=== PATIENT | male | born 1935 | race Caucasian/White ===

== ENCOUNTER 2020-05-24 09:17 | Day surgery (SDC) | payer MEDICARE, OTHER ==
[~2020-05-24] VITALS: Ht 175.3 cm; Wt 85.9 kg
--- NOTE | ~2020-05-24 | HEMODYNAMI ---
PATIENT:LZI MARTINEZ MEDICAL RECORD: [id number] : 31 LOCATION:[facility] ADMISSION DATE: 05/24/20 Generatedon:05/24/202013:13 Patient name: LIZ MARTINEZ Patient #: [id number] SSN: DO B: 1935 Date of study: 05/24/2020 Page: Of Hemodynamic Procedure Report Patient Data Patient Demographics Procedure consent was obtained First Name: LIZ Gender: Male Last Name: MICHELLE : 1935 Middle Initial: T Age: 85 year(s) Patient #: [id number] Race: Unknown Additional ID: [id number] Contact details Address: [address] State: [place] City: [facility] Zip code: [address] Past Medical History Allergies Allergen Reaction Date Comments Reported Erythromycin 05/24/2020 Admission Admission Data Admission Date: 05/24/2020 Admission Time: 9:17 Procedure Procedure Types Cath Procedure Peripheral Cath Diagnostic Procedure Abd/Extremity Extremities Right Lower Ext Arterio Procedure Description Procedure Date Procedure Date: 05/24/2020 Procedure Start Time: 11:23 Procedure End Time: 13:12 Procedure Staff Name Function Grupo Maher MD Performing Physician BETY WEST RT Monitor Garland Villasenor RT Scrub Nara Sandoval RN Nurse Luzmaria DUGAN RN Nurse Procedure Data Cath Procedure Fluoroscopy Diagnostic fluoroscopy Total fluoroscopy dose: 426 dose: 426 mGy mGy Contrast Material Contrast Material Type Amount (ml) Isovue 300 55 Entry Location Entry Primary Successful Side Size Upsize Upsize Entry Closure Succes sful Closure Location (Fr) 1 (Fr) 2 (Fr) Remarks Device Remarks Femoral Left 5 Fr 6 Fr 6 Fr Mynx artery Long Short Payroll Manager 6Fr/7Fr Procedure Medications Medication Administration Route Dosage Heparin Flush Bag added to field 3 bags (1000units/500ml NS) Lidocaine 1% added to field 20 Benadryl I.V. 50 mg Versed I.V. 1 mg Fentanyl I.V. 50 mcg Heparin Bolus I.V. 5000 units Hydralizine 10 mg Hydralizine I.V. 10 mg Hydralizine I.V. 10 mg Heparin Bolus I.V. 2500 units Fentanyl I.V. 50 mcg Versed I.V. 0.5 mg Hydralizine I.V. 10 mg Versed I.V. 0.5 mg Hemodynamics Rest Heart Rate: 56 (bpm) Snapshots Pre Cath Intra NCS Post Cath Vital Signs Time Heart Resp SPO2 etCO2 NIBP (mmHg) Rhythm Pain Sedation Rate (ipm) (%) (mmHg) Status Level (bpm) 10:58:54 0 222/98(176) NSR 0 (11) 10(A) , No pain 11:03:27 57 26 97 28.6 219/104(183) NSR 0 (11) 10(A) , No pain 11:12:01 56 28 100 28.6 212/97(181) NSR 0 (11) 10(A) , No pain 11:16:37 57 22 100 33.9 216/97(181) NSR 0 (11) 10(A) , No pain 11:21:16 60 17 99 0 219/100(185) NSR 0 (11) 10(A) , No pain 11:25:50 59 11 95 0 207/93(179) NSR 0 (11) 10(A) , No pain 11:30:27 58 13 96 0 197/91(169) NSR 0 (11) 10(A) , No pain 11:34:59 58 19 99 29.4 200/92(162) NSR 0 (11) 8(A) , No pain 11:39:33 63 17 20.3 190/92(164) NSR 0 (11) 8(A) , No pain 11:44:04 58 17 28.6 190/88(153) NSR 0 (11) 8(A) , No pain 11:48:36 58 19 100 11.3 169/81(151) NSR 0 (11) 8(A) , No pain 11:53:01 57 19 3 182/85(165) NSR 0 (11) 8(A) , No pain 11:57:29 57 19 100 21.8 199/85(151) NSR 0 (11) 8(A) , No pain 12:02:01 57 22 4.5 193/92(171) NSR 0 (11) 8(A) , No pain 12:06:32 58 20 11.3 206/92(154) NSR 0 (11) 8(A) , No pain 12:11:08 58 21 10.5 201/85(154) NSR 0 (11) 8(A) , No pain 12:15:39 61 25 100 9.8 171/82(146) NSR 0 (11) 8(A) , No pain 12:20:05 63 19 9.8 180/83(136) NSR 0 (11) 10(A) , No pain 12:24:33 67 23 93 30.1 179/85(128) NSR 0 (11) 10(A) , No pain 12:29:00 129 17 12.8 176/83(131) NSR 0 (11) 10(A) , No pain 12:33:24 68 23 99 13.5 175/89(142) NSR 0 (11) 10(A) , No pain 12:37:48 69 22 99 16.5 178/87(121) NSR 0 (11) 10(A) , No pain 12:42:10 71 27 100 24.8 180/95(110) NSR 0 (11) 10(A) , No pain 12:46:36 72 24 100 10.5 179/91(144) NSR 0 (11) 10(A) , No pain 12:51:35 72 26 100 11.3 Measuring NSR 0 (11) 10(A) , No pain 12:52:10 73 24 100 24.1 189/107(150) NSR 0 (11) 10(A) , No pain 12:56:38 73 26 99 12 186/102(134) NSR 0 (11) 10(A) , No pain 13:01:05 76 28 98 27.9 200/109(159) NSR 0 (11) 10(A) , No pain 13:05:37 72 27 100 24.1 209/106(165) NSR 0 (11) 10(A) , No pain 13:09:59 67 19 7.5 184/93(162) NSR 0 (11) 10(A) , No pain 13:12:37 65 23 100 21.8 172/82(150) NSR 0 (11) 10(A) , No pain Medications Time Medication Route Dose Verified Delivered Reason Notes Effe ctiveness by by 11:06:21 Heparin Flush added 3 Grupo Lombardo used for Bag to bags Nika Maher procedure (1000units/500ml field MD BARON NS) 11:06:33 Lidocaine 1% added 20ml Grupo Lombardo for local to vial Nika Maher anesthetic field MD BARON 11:19:32 Benadryl I.V. 50 mg Grupo Bains Per Nika Sandoval RN physician 11:19:43 Versed I.V. 1 mg Grupo Bains for Nika Sandoval RN sedation 11:19:54 Fentanyl I.V. 50 Grupo Bains for mcg Nika Sandoval RN sedation 11:26:44 Heparin Bolus I.V. 5000 Grupo Bains Per units Nika Sandoval RN physician 11:33:35 Hydralizine 10 mg Grupo Sandoval RN, MD 11:40:02 Hydralizine I.V. 10 mg Grupo Sandoval RN, MD 12:07:35 Hydralizine I.V. 10 mg Grupo Sandoval RN, MD 12:12:45 Heparin Bolus I.V. 2500 Grupo Dutta Per units Nika walker MD RN 12:15:54 Fentanyl I.V. 50 Grupo Hensonody for mcg Nika Sandoval RN sedation 12:46:17 Versed I.V. 0.5 Grupo Woodr for mg Nika DUGAN sedation RN 12:56:25 Versed I.V. 0.5 Grupo Minner for mg Nika DUGAN sedation RN 13:08:08 Hydralizine I.V. 10 mg Grupo DUGAN MD bonding machine setter Log Time Note 10:53:23 Garland Villasenor RT (R) (CV) sent for patient. Start room use. 10:53:34 Patient received from Outpatients to IR Alert and oriented. Tansferred to table in Supine position. 10:53:36 Signed procedure consent form obtained from patient. 10:53:37 Warm blankets applied, and sajan hugger turned on for patient comfort. 10:53:39 Correct patient and procedure confirmed by team. 10:53:41 ECG and BP/O2 sat monitors applied to patient. 10:53:43 - 10:53:49 H&P Date Dictated: 05/24/2020 H&P Addendum completed by physician on day of procedure. (MUST COMPLETE FOR ALL OUTPATIENTS). 10:53:50 Pre-procedure instructions explained to patient. 10:53:51 Pre-op teaching completed and patient verbalized understanding. 10:53:52 Patient NPO since Midnight. 10:53:59 Patient allergic to Erythromycin 10:54:01 Is the patient allergic to Iodine/contrast media? No. 10:54:02 Is patient on blood thinner?Yes. Plavix and Aspirin x2 days ago 10:54:24 Patient diabetic? Yes. 10:54:26 If diabetic: On Metformin? Yes 10:54:30 If on Metformin: Last Dose? 05/22/2020 10:54:32 - 10:54:33 ----Pre-sedation anethsthesia assessment.---- 10:54:36 Previous problem with sedation/anesthesia? No ? 10:54:38 Snore? Yes 10:54:40 Sleep apnea? Yes 10:54:41 Deviated septum? No 10:54:43 Opens mouth fully? Yes 10:54:44 Sticks out tongue? Yes 10:54:47 Airway obstruction? No ? 10:54:50 Dentures? No ? 10:54:51 - 10:55:00 Use device set IR Diagnostic 10:55:02 Bag Decanter (2002S) opened to sterile field. 10:55:02 Sterile Angiographic Pack opened to sterile field. 10:55:03 Tegaderm 4 x 4 (1626W) opened to sterile field. 10:55:38 MICROPUNCTURE 4FR Cook (O99374) opened to sterile field. 10:55:38 BENTSON 145cm wire (N67487) opened to sterile field. 10:55:38 GUDINO 260 wire (K74901) opened to sterile field. 10:55:39 ROADRUNNER .035 260 glide wire (O49168) opened to sterile field. 10:55:39 SHEATH 5FR Madison (ZGW109) opened to sterile field. 11:06:21 Heparin Flush Bag (1000units/500ml NS) 3 bags added to field was administered by Grupo Maher MD; used for procedure; Verbal order read back and verified. 11:06:33 Lidocaine 1% 20ml vial added to field was administered by Grupo jacob MD; for local anesthetic; Verbal order read back and verified. 11:10:05 - 11:10:07 Pre procedure: right dorsailis pedis pulse Doppler 11:10:10 Pre procedure: left dorsailis pedis pulse Doppler 11:10:12 Pre procedure: right posterior tibial pulse Doppler 11:10:15 Pre procedure: left posterior tibial pulse Doppler 11:10:25 IV patent on arrival in left forearm with 0.9% NaCl at O. 11:10:30 Left groin area was prepped with chlora-prep and draped in sterile fashion 11:10:31 Alarms reviewed by Sukumar Jamison 11:10:31 Sharps counted by scrub and verified by RLin 11:10:32 - 11:10:36 Vital chart was started 11:10:37 Baseline sample Acquired. 11:10:38 Full Disclosure recording started 11:10:40 - 11:17:07 Physician arrived 11:17:07 --------ALL STOP TIME OUT------ 11:17:08 Final Timeout: patient, procedure, and site verified with staff and physician. All members of the team are in agreement. 11:17:09 Left groin site verified by team. 11:17:13 Fire Safety Assessment: A--An alcohol-based skin anteseptic being used preoperatively., C--Open oxygen or nitrous oxide is being used. 11:17:26 1) 90+ Normal kidney functon but urine findings or structural abnormalities or genetic trait point to kidney disease. 11:19:32 Benadryl 50 mg I.V. was administered by Nara Sandoval RN; Per physician ; Verbal order read back and verified. 11:19:43 Versed 1 mg I.V. was administered by Nara Sandoval RN; for sedation; Verbal order read back and verified. 11:19:54 Fentanyl 50 mcg I.V. was administered by Nara Sandoval RN; for sedation ; Verbal order read back and verified. 11:20:58 Procedure started. 11:23:49 Local anesthetic to left femerol artery with Lidocaine 1% by Grupo Maher MD.INITIAL ACCESS ONLY 11:24:48 Access obtained with 4Fr micropunture. 11:25:40 Maximum allowable contrast dose (3.7 X eGFR X 0.75)250 ml. 11:26:25 A 5 Fr sheath was inserted into the Left Femoral artery 11::44 Heparin Bolus 5000 units I.V. was administered by Nara Sandoval RN; Per physician; Verbal order read back and verified. 11:30:30 SHEATH 6FR Destination (RSR01) opened to sterile field. 11:30:31 CXI SUPPORT .035 135 CM STR catheter ([id number]) opened to sterile field. 11:33:35 Hydralizine 10 mg was administered by Nara Sandoval RN; ; Verbal order read back and verified. 11:33:45 CXI Catheter 90cm (M73998) opened to sterile field. 11:39:01 Sheath upsized to a 6 Fr Long. 11:40:02 Hydralizine 10 mg I.V. was administered by Nara Sandoval RN; ; Verbal order read back and verified. 11:46:09 Viance Crossing Catheter Standard (VZMLL666) opened to sterile field. 11:46:10 CHOICE PT Extra Support J 300cm guide wire ([id number]) opened to steril e field. 11:57:44 CHOICE PT Extra Support J 300cm guide wire ([id number]) opened to steril e field. 11:59:00 TORQUE DEVICE PLASTIC .038 ( TD01) opened to sterile field. 12:01:40 COPILOT Valve Control (3183890) opened to sterile field. 12:07:35 Hydralizine 10 mg I.V. was administered by Nara Sandoval RN; ; Verbal order read back and verified. 12:12:45 Heparin Bolus 2500 units I.V. was administered by Luzmaria DUGAN RN; Pe r physician; Verbal order read back and verified. 12:15:54 Fentanyl 50 mcg I.V. was administered by Nara Sandoval RN; for sedation ; Verbal order read back and verified. 12:15:54 Inflate balloon Inflation number: 1 A NANOCROSS ELITE 3 X 100 ([id number]) was prepped and advanced across the Undefined1 , then inflated. 12:21:06 Inflate balloon Inflation number: 2 A NANOCROSS ELITE 4MM X 120 X 150 ([id number]) was prepped and advanced across the Undefined1 , then inflated. 12:26:41 Inflate balloon Inflation number: 3 A SHOCKWAVE BALLOON 7 X 60 ([id number]) was prepped and advanced across the Undefined1 , then inflated. 12:37:35 CHOICE PT Extra Support J 300cm guide wire ([id number]) opened to steril e field. 12:46:17 Versed 0.5 mg I.V. was administered by Luzmaria DUGAN RN; for sedation; Verbal order read back and verified. 12:56:25 Versed 0.5 mg I.V. was administered by Luzmaria DUGAN RN; for sedation; Verbal order read back and verified. 12:58:31 SHEATH 6FR Madison (TZD678) opened to sterile field. 12:59:07 Sheath upsized to a 6 Fr Short. 12:59:07 Sheath removed intact; hemostasis achieved with Mynx Payroll Manager 6Fr/7Fr to th e Left Femoral artery. 12:59:10 MYNX COFFEE URN ATTENDANT 6FR/7FR (TE1632) opened to sterile field. 13:00:09 Procedure ended.(Physican Out) 13:02:32 Fluoroscopy dose: 426 mGy 13:02:32 Flurop Dose total: 426 13:02:35 Contrast amount:Isovue 300 55ml. 13:02:37 Maximum allowable dose exceeded? No. 13:02:38 Sharps counted by scrub and verified by R.N. 13:02:47 Post left femerol artery:stable, hematoma, soft, clean and dry 13:02:49 Post Procedure Pulses reassessed and unchanged 13:02:51 Post procedure instruction explained to patient.Patient verbalizes understanding. 13:02:53 Procedure and supply charges have been captured, reviewed, submitted an d are correct. 13:08:08 Hydralizine 10 mg I.V. was administered by Luzmaria DUGAN RN; ; Verbal order read back and verified. 13:12:57 Vital chart was stopped 13:12:59 Procedure ended. 13:12:59 Full Disclosure recording stopped Intervention Summary Intervention Notes Time ActionType Lesion and Equipment Used Action# Pressure Duration Attributes 12:15:54 Inflate Undefined1 NANOCROSS ELITE 3 1 0 00:00 balloon X 120 ([id number]) 12:21:06 Inflate Undefined1 NANOCROSS ELITE 2 0 00:00 balloon 4MM X 120 X 150 ([id number]) 12:26:41 Inflate Undefined1 SHOCKWAVE BALLOON 3 0 00:00 balloon 6 X 60 ([id number]) Device Usage Item Name Manufacture Quantity Catalog Number Hospital Part Curr ent Minimal Lot# / Charge Number Stock Stock Serial# Code Bag Decanter Microtek 1 [id number] 82034 9836 85 5 () Medical Inc. Sterile Cardinal 1 [id number] 325973 1892 13 5 Angiographic Pack Health Tegaderm 4 x 4 3M 1 1626W 677874 636868 1074 79 5 (1626W) MICROPUNCTURE 4FR Glomera 1 K50747 913652 953197 9453 41 5 Cook (I21708) BENTSON 145cm Glomera 1 O04744 520094 1446 33 5 wire (H52959) GUDINO 260 wire [facility] 1 V82695 223681 43049 9993 79 5 (Z23162) ROADRUNNER .035 Glomera 1 D04559 797836 514383 8850 16 5 260 glide wire (K23328) SHEATH 5FR Terumo 1 RVU436 918450 485289 4981 31 5 Madison (LMM524) ACIST Syringe Acist 1 92642 390237 975914 1535 02 20 (42387) Medical Systems Inc ACIST Hand Acist 1 32301 626960 801887 4486 33 5 Control (08245) Medical Systems Inc ACIST Manifold Acist 1 77994 596811 382504 3233 49 5 (67085) Medical Systems Inc SHEATH 6FR Terumo 1 RSR01 185135 22892 9994 64 5 Destination (RSR01) CXI SUPPORT .035 Glomera 1 E17147 335234 828705 8576 42 5 135 CM STR catheter (T53595) CXI Catheter 90cm Glomera 1 O19428 470106 075863 4626 63 5 (F22214) Viance Crossing Medtronic 1 VNC-SD-150 400393 522491 7793 93 5 Catheter Standard (VLNVY914) CHOICE PT Extra Jackson 3 [id number] 684164 9678 52 5 Support J 300cm Scientific guide wire (0181383T6) TORQUE DEVICE Jackson 1 TD01 985279 841744 3417 52 5 PLASTIC .038 ( Scientific TD01) COPILOT Valve Aldridge 1 6611755 380059 524025 8874 17 5 Control (0462493) Vascular NANOCROSS ELITE 3 Medtronic 1 [id number] 743540 856073 2325 94 1 X 120 ([id number]) NANOCROSS ELITE Medtronic 1 [id number] 767904 3873 88 1 4MM X 120 X 150 ([id number]) SHOCKWAVE BALLOON SHOCKWAVE 1 [id number] 888992 8658862 9999 97 1 6 X 60 MEDICAL ([id number]) CHOICE PT Floppy Jackson 1 [id number] 966353 658396 6314 95 5 J 300cm guide Scientific wire (5762537S7) SHEATH 6FR Terumo 1 RVK094 592228 927715 4721 72 40 Madison (GFL329) MYNX COFFEE URN ATTENDANT 6FR/7FR Access 1 GX8509 665065 1610 78 5 (CX2971) Closure Signature Audit [place] Stage Time Signature Unsigned Intra-Procedure 05/24/2020 BETY WEST RT 1:13:21 PM (R) [facility] [address] [place] [address]
[~2020-05-24 09:17] MED LIST: BAYER CHEWABLE81 MG PO; CO Q-1030 MG; DAILY MULTIVITA1 TA1 PO; GLUCOPHAGE500 MG PO; LIPITOR40 MG PO; OMEGA-3100 MG PO; PEPCID20 MG PO; PLAVIX75 MG PO; PRILOSEC20 MG PO; PRINZIDE 20/12.1 TAB PO
[2020-05-24 09:36] LABS: BASOPHILS 0.2 % (0-2); EOSINOPHILS 1.9 % (0-7); HEMATOCRIT 41.4 % (42.0-54.0); HEMOGLOBIN 14.4 g/dL (13.5-17.5); IMMATURE GRANULOCYTES 0.2 % (0-5); LYMPHOCYTES 40.7 % (15-50); MCH 34.3 pg (26.0-34.0); MCHC 34.8 g/dL (31.0-37.0); MCV 98.6 fL (80.0-100.0); MEAN PLATELET VOLUME 9.9 fL (7.4-10.4); MONOCYTES 8.8 % (2-11); NEUTROPHILS 48.2 % (40-80); PLATELET COUNT 131 10x3/uL (130-400); RDW 13.2 % (11.5-14.5); WBC 5.7 10x3/uL (4.8-10.8)
[2020-05-24 09:43] LABS: CALC OSMOLALITY 274 mosm/kg (275-300); CALCIUM 10.2 mg/dL (8.5-10.1); CARBON DIOXIDE 35.9 mmol/L (21.0-32.0); CHLORIDE - SERUM 100 mmol/L (98-107); CREATININE - SERUM 0.8 mg/dL (0.6-1.3); GLUCOSE 148 mg/dL (74-106); POTASSIUM - SERUM 4.1 mmol/L (3.5-5.1); SODIUM 136 mmol/L (136-145); UREA NITROGEN 12 mg/dL (7-18); eGFR NON AFRICAN AMERICAN > 90 mL/min (90-120)
[2020-05-24 09:48] LABS: PROTIME 13.1 SECONDS (11.6-15.0)
[2020-05-24 10:40] VITALS: BMI 27.9
[2020-05-24 15:00] VITALS: BP 146/67
--- NOTE | 2020-05-24 15:56 | NUR ---
REPORT CALLED TO INES CASANOVA RN AND PATIENT TRANSFERRED TO ROOM 2113 BY STRETCHER IN STABLE CONDITION
--- NOTE | 2020-05-24 16:23 | NUR ---
RECEIVED PT FROM IR. PT IS AAO AND BEDFAST. PT IS SEMI FOWLERS AT 30 DEGREES AND WILL BE UNTIL 1750. RR EVEN AND UNLABORED ON RA. VSS AND WNL. NO S/S OF DISTRESS NOTED. 1/2NS INFUSING @100ML/HR VIA L.FOR PIV. PT DENIES ANY NEEDS AT THIS TIME. WILL CTM. L.GRONG IS C/D/I WITH NO S/S OF HEMATOMA PRESENT.
[2020-05-24 16:31] VITALS: BP 146/67; Ht 175.3 cm; Wt 85.9 kg
--- NOTE | 2020-05-24 19:27 | NUR ---
RECIEVED UP IN BED WITH EYES CLOSED . EASILY AROUSES WITH VERBAL STIMULI. DENIES ANY NEEDS AT THIS TIME.
[2020-05-24 20:00] VITALS: BP 174/72
[2020-05-25] VITALS: BP 173/82
[2020-05-25 04:00] VITALS: BP 195/86
[2020-05-25 07:42] VITALS: BP 180/79
--- NOTE | 2020-05-25 11:05 | NUR ---
SALINE LOCK REMOVED, DISCHARGE INSTRUCTIONS DISCUSSED WITH PATIENT AND TO CAR VIA WHEELCHAIR.
== END 2020-05-25 11:31 | disposition home or self-care (01) ==
LOC: D.SP 09:17 → D.RAD 11:00 → EDSTATUS 11:00 → D.SP 11:00 → D.M2 15:57 → D.SP 05-25 11:31
PROVIDERS: ATTEND Radiology Diagnostic Radiology
DX: I70.211 Atherosclerosis of native arteries of extremities with intermittent claudication, right leg (principal); I10 Essential (primary) hypertension; I25.10 Atherosclerotic heart disease of native coronary artery without angina pectoris; K21.9 Gastro-esophageal reflux disease without esophagitis; Z85.038 Personal history of other malignant neoplasm of large intestine; E11.9 Type 2 diabetes mellitus without complications; E78.5 Hyperlipidemia, unspecified; G47.30 Sleep apnea, unspecified; C44.310 Basal cell carcinoma of skin of unspecified parts of face
CPT/HCPCS: 36246; C9764